=== PATIENT | male | born 1970 | race Caucasian/White ===

== ENCOUNTER 2025-01-22 14:09 | Outpatient (CLI) | payer OTHER, SELFPAY | END 2025-01-22 14:10 | disposition home or self-care (01) | PROVIDERS: PCP Family Medicine; Visit Provider Family Medicine | DX: G47.30 Sleep apnea, unspecified (principal); Z12.5 Encounter for screening for malignant neoplasm of prostate; Z13.6 Encounter for screening for cardiovascular disorders; Z13.1 Encounter for screening for diabetes mellitus; Z13.0 Encounter for screening for diseases of the blood and blood-forming organs and certain disorders involving the immune mechanism | CPT/HCPCS: 80048; 80061; G0103 ==

== ENCOUNTER 2025-03-18 09:57 | Outpatient (CLI) | payer OTHER, SELFPAY ==
--- NOTE | 2025-03-30 10:56 | W.PM.SLEEP ---
Sleep Study Details Details Interpreting Provider: Katlin Date of Sleep Study: 03/18/25 Sleep Study Details: STUDY TYPE:? Home unattended ? BMI:? 30.7 ORDERING PROVIDER:? Katlin INDICATION:? Concern about sleep apnea ? SLEEP SUMMARY:? 451 minutes monitor RESPIRATORY SUMMARY:? AHI 63.5 per CMS guideline, 65.3 per rule 1A , central apnea index was 37.7 Low oxygen 70 52.3% of study oxygen less than 90% Snoring 84% PERIODIC LIMB MOVEMENTS OF SLEEP:? Not recorded CARDIAC:? Range 54-98, mean 72 beats per minute IMPRESSION:? Severe mixed sleep apnea with significant hypo oxygenation for over half of the study RECOMMENDATION: In-lab titration. Prior to titration recommend the patient have an echocardiogram to ensure normal ejection fraction so if necessary an ASV titration could be performed.
== END 2025-03-18 09:58 | disposition home or self-care (01) ==
LOC: SLEEP 09:59
PROVIDERS: PCP Family Medicine; Visit Provider Otolaryngology
DX: G47.33 Obstructive sleep apnea (adult) (pediatric) (principal)
CPT/HCPCS: 95806

== ENCOUNTER 2025-04-23 12:44 | Outpatient (CLI) | payer OTHER, SELFPAY ==
[2025-04-23] MEDS: PERFLUTREN LIPID MICROSPHERES 2 ML VIAL IVP (14:00)
== END 2025-04-23 12:45 | disposition home or self-care (01) ==
LOC: RAD 12:45
PROVIDERS: PCP Family Medicine; Visit Provider Family Medicine
DX: G47.31 Primary central sleep apnea (principal)
CPT/HCPCS: 93306

== ENCOUNTER 2025-05-10 20:59 | Outpatient (CLI) | payer OTHER, SELFPAY ==
--- NOTE | 2025-05-18 12:12 | W.PM.SLEEP ---
Sleep Study Details Details Interpreting Provider: Katlin Date of Sleep Study: 05/10/25 Sleep Study Details: STUDY TYPE:? Hospital-based, attended, CPAP titration ? BMI:? 30.7 ORDERING PROVIDER:? Katlin INDICATION:? Central and obstructive apnea noted on previous study ? SLEEP SUMMARY:? 299.5 minutes total sleep time RESPIRATORY SUMMARY:? Mean oxygen awake 94 asleep 94 minimum 88 0.2 minutes oxygen between 80 and 88% Overall AHI for this study is 6.8 per CMS criteria 10.4 per rule 1A.d CPAP titration was begun at 5 in and and titrated all the way up to 14. Best pressures appeared to be 10 which included a large amount of REM stage sleep decreasing AHI 2 6 point tube in the lateral position. There were no significant central apneas during the titration portion of the study. PERIODIC LIMB MOVEMENTS OF SLEEP:? None CARDIAC:? Awake 70 asleep 66, no arrhythmias noted IMPRESSION:? Obstructive sleep apnea. The central apneas noted on the initial study did not seem to be an issue for this titration study. The patient did much better in the nonsupine position. Titration was relatively successful and include some nonsupine REM stage sleep RECOMMENDATION: Would initiate AutoSet CPAP at a pressure of 10-17 and advised the patient to sleep in the lateral position. Close follow-up is recommended
== END 2025-05-10 21:00 | disposition home or self-care (01) ==
LOC: SLEEP 20:59
PROVIDERS: PCP Family Medicine; Visit Provider Otolaryngology
DX: G47.33 Obstructive sleep apnea (adult) (pediatric) (principal)
CPT/HCPCS: 95811